=== PATIENT | male | born 1945 | race Caucasian/White ===

== ENCOUNTER 2017-05-29 05:43 | Inpatient (IN) | payer MEDICARE, OTHER ==
[~2017-05-29] VITALS: Ht 167.6 cm; Wt 64.0 kg
[2017-05-29] MEDS ORDERED: SODIUM CHLORIDE FLUSH 10ML SYR IVF ONE (06:00)
[2017-05-29 06:28] LABS: HEMATOCRIT 50.7 % (39.2-51.8); WHITE BLOOD COUNT 5.9 x10^3/uL (3.4-10)
[2017-05-29 06:36] LABS: BLOOD UREA NITROGEN 15 mg/dL (7-18)
[2017-05-29 06:40] LABS: ASPARTATE AMINO TRANSFERASE 11 U/L (15-37)
[2017-05-29 06:41] LABS: IS PT STATUS REG ER OR PRE ER? YES
[2017-05-29] MEDS ORDERED: METO-93 PO (07:07)
[2017-05-29] MEDS ORDERED: LEVO50TA5 PO (07:08)
[2017-05-29] MEDS ORDERED: SODIUM CHLORIDE 0.9% 1,000 ML IV ONE (07:42)
[2017-05-29] MEDS ORDERED: SODIUM CHLORIDE FLUSH 10ML SYR IVF PRN (08:00)
[2017-05-29] MEDS: SODIUM CHLORIDE 0.9% 1,000 ML IV SCH ×2 (08:17→18:12)
[2017-05-29] MEDS ORDERED: LABETALOL 5MG/ML, 20ML IVPush PRN (08:30)
[2017-05-29] MEDS ORDERED: ONDANSETRON 2MG/ML, 2ML IVPush PRN (08:30)
[2017-05-29] MEDS ORDERED: ACETAMINOPHEN 325 MG TABLET PO PRN (08:30)
[2017-05-29] MEDS ORDERED: GADOBUTROL 7.5 MMOL/7.5 ML PFS ONE (09:01)
[2017-05-29 10:26] VITALS: BP 155/90
[2017-05-29 14:14] VITALS: BP 121/69
[2017-05-29 14:15] VITALS: BP 109/75
[2017-05-29 14:16] VITALS: BP 120/74
== END 2017-05-29 19:15 | disposition home or self-care (01) | DRG 54 ==
LOC: ED 06:35 → EDIP 07:42 → 4WST 10:10
PROVIDERS: ADMIT Family Medicine; ATTEND Family Medicine
DX: D33.3 Benign neoplasm of cranial nerves (principal); G93.40 Encephalopathy, unspecified; I48.91 Unspecified atrial fibrillation; G45.0 Vertebro-basilar artery syndrome; G45.9 Transient cerebral ischemic attack, unspecified; W19.XXXA Unspecified fall, initial encounter; E03.9 Hypothyroidism, unspecified; E78.00 Pure hypercholesterolemia, unspecified; H93.19 Tinnitus, unspecified ear; I51.7 Cardiomegaly; K21.9 Gastro-esophageal reflux disease without esophagitis; Y93.89 Activity, other specified; Y92.89 Other specified places as the place of occurrence of the external cause; Y99.8 Other external cause status; Z88.8 Allergy status to other drugs, medicaments and biological substances
CPT/HCPCS: 36415; 70450; 70553; 71010; 80053; 80061; 81001; 84443; 84484; 85025; 85610; 85730; 93005; 93306; 93880; 99285; A9585; J7030

== ENCOUNTER 2017-12-05 09:10 | Emergency (ER) | payer OTHER ==
[~2017-12-05] VITALS: Ht 167.6 cm; Wt 70.0 kg
[~2017-12-05 09:10] MED LIST: LEVO50TA5 PO; METO-93 PO
[2017-12-05 09:48] LABS: MICROSCOPIC NOT IND
[2017-12-05] MEDS ORDERED: SODIUM CHLORIDE 0.9% 1,000 ML IV ONE (09:49)
[2017-12-05 09:58] LABS: CULTURE INDICATED? NO
[2017-12-05] MEDS ORDERED: DIPHENHYDRAMINE 50 MG/ML, 1ML IVPush ONE (10:00)
[2017-12-05] MEDS ORDERED: SODIUM CHLORIDE FLUSH 10ML SYR IVF ONE (10:00)
[2017-12-05] MEDS ORDERED: methylPREDNISolone SOD SUCC 125 MG/2 ML IVPush SCH (10:00)
[2017-12-05] MEDS ORDERED: methylPREDNISolone SOD SUCC 125 MG/2 ML ONE (10:18)
[2017-12-05] MEDS ORDERED: DIPHENHYDRAMINE 50 MG/ML, 1ML ONE (10:18)
[2017-12-05 10:33] LABS: BASOPHILS # (AUTO) 0.02 x10^3/uL (0-0.1); BASOPHILS % (AUTO) 0 % (0-1); EOSINOPHILS # (AUTO) 0.33 x10^3/uL (0-0.4); EOSINOPHILS % (AUTO) 4 % (1-7); LYMPHOCYTES # (AUTO) 1.37 x10^3/uL (1-3.4); LYMPHOCYTES % (AUTO) 17 % (22-44); MD NO; MEAN CORPUSCULAR HEMOGLOBIN 31.4 pg (27.5-34.5); MEAN CORPUSCULAR HGB CONC 33.1 g/dL (33.2-36.2); MEAN CORPUSCULAR VOLUME 94.7 fL (81-97); MONOCYTES # (AUTO) 0.47 x10^3/uL (0.2-0.8); MONOCYTES % (AUTO) 6 % (2-9); NEUTROPHILS # (AUTO) 5.93 x10^3/uL (1.8-6.8); NEUTROPHILS % (AUTO) 73 % (42-75); PLATELET COUNT 192 x10^3/uL (130-400); RED CELL DISTRIBUTION WIDTH 14.5 % (9.4-14.8)
[2017-12-05 10:41] LABS: ALANINE AMINOTRANSFERASE 25 U/L (12-78); ALBUMIN 3.8 g/dL (3.4-5.0); ANION GAP 7 mmol/L (5-15); CALCIUM 8.9 mg/dL (8.5-10.1); CHLORIDE 107 mmol/L (98-107); CREATININE 0.94 mg/dL (0.7-1.3)
[2017-12-05 10:43] LABS: ALKALINE PHOSPHATASE 70 U/L (45-117); BILIRUBIN,TOTAL 0.5 mg/dL (0.2-1.0); TOTAL PROTEIN 7.2 g/dL (6.4-8.2)
[2017-12-05] MEDS ORDERED: OMNIPAQUE 350 MG/ML, 100ML BOTTLE ONE (11:35)
[2017-12-05] MEDS ORDERED: BEE PROPOLIS (11:50)
[2017-12-05] MEDS ORDERED: ENZY1CAP PO (11:51)
[2017-12-05] MEDS ORDERED: UBID100C41 PO (11:51)
[2017-12-05] MEDS ORDERED: [UNRECOGNIZED DRUG - CODE] PO (11:53)
[2017-12-05] MEDS ORDERED: [UNRECOGNIZED DRUG - OTHER] PO (11:53)
[2017-12-05] MEDS ORDERED: MULT-516 PO (11:54)
[2017-12-05] MEDS ORDERED: ARGI500C7 PO (11:54)
[2017-12-05] MEDS ORDERED: LACT1CAP43 PO (11:55)
[2017-12-05] MEDS ORDERED: FRUIT PO (11:56)
[2017-12-05] MEDS ORDERED: [UNRECOGNIZED DRUG - OTHER] PO (11:56)
[2017-12-05] MEDS ORDERED: [UNRECOGNIZED DRUG - OTHER] (11:57)
[2017-12-05] MEDS ORDERED: ACET600C5 PO (11:57)
[2017-12-05] MEDS ORDERED: RESV1TAB2 PO (11:58)
[2017-12-05] MEDS ORDERED: PHYT100T PO (11:59)
[2017-12-05] MEDS ORDERED: CHOL100011 PO (11:59)
[2017-12-05] MEDS ORDERED: VITA80004 PO (11:59)
[2017-12-05] MEDS ORDERED: POLICOSANOL (12:00)
[2017-12-05] MEDS ORDERED: CYAN1TAB29 PO (12:01)
[2017-12-05] MEDS ORDERED: TESTOSTERONE SHOT (12:02)
[2017-12-05] MEDS ORDERED: DIPH25CA61 PO (12:03)
[2017-12-05] MEDS ORDERED: CHLORTRIMETON (12:04)
[2017-12-05] MEDS ORDERED: PSYL0.5215 PO (12:04)
[2017-12-05] MEDS ORDERED: MAGN400O7 PO (12:05)
[2017-12-05 12:46] VITALS: BP 133/81
== END 2017-12-05 12:48 | disposition home or self-care (01) ==
LOC: ED 11:27
DX: R10.32 Left lower quadrant pain (principal); I25.10 Atherosclerotic heart disease of native coronary artery without angina pectoris; K21.9 Gastro-esophageal reflux disease without esophagitis; E78.5 Hyperlipidemia, unspecified; E03.9 Hypothyroidism, unspecified; I10 Essential (primary) hypertension; Z90.49 Acquired absence of other specified parts of digestive tract; Z86.73 Personal history of transient ischemic attack (TIA), and cerebral infarction without residual deficits
CPT/HCPCS: 36415; 74177; 80053; 81003; 85025; 96374; 96375; 99285; J1200; J2930; J7030; Q9967; 96361

== ENCOUNTER → 2018-01-13 | Outpatient (CLI) | payer OTHER ==
[~2018-01-13] MED LIST changes: +ACET600C5 PO; +ARGI500C7 PO; +BEE PROPOLIS; +CHLORTRIMETON; +CHOL100011 PO; +CYAN1TAB29 PO; +DIPH25CA61 PO; +ENZY1CAP PO; +FRUIT PO; +LACT1CAP43 PO; +MAGN400O7 PO; +MULT-516 PO; +PHYT100T PO; +POLICOSANOL; +PSYL0.5215 PO; +RESV1TAB2 PO; +TESTOSTERONE SHOT; +UBID100C41 PO; +VITA80004 PO; +[UNRECOGNIZED DRUG - CODE] PO; +[UNRECOGNIZED DRUG - OTHER]; +[UNRECOGNIZED DRUG - OTHER] PO; +[UNRECOGNIZED DRUG - OTHER] PO
== END | disposition home or self-care (01) ==
LOC: CFH 08:34
PROVIDERS: ATTEND Internal Medicine Cardiovascular Disease
DX: I10 Essential (primary) hypertension (principal); I25.10 Atherosclerotic heart disease of native coronary artery without angina pectoris
CPT/HCPCS: 78452; 93017; A9502

== ENCOUNTER → 2018-01-21 | Outpatient (CLI) | payer OTHER | END | disposition home or self-care (01) | LOC: ROC 01-14 09:54 | PROVIDERS: ATTEND Radiology Radiation Oncology | DX: Z08 Encounter for follow-up examination after completed treatment for malignant neoplasm (principal); D33.3 Benign neoplasm of cranial nerves | CPT/HCPCS: 99214; G0463 ==

== ENCOUNTER → 2018-01-24 | Outpatient (CLI) | payer OTHER ==
[~2018-01-24] MED LIST changes: +GADOBUTROL 7.5 MMOL/7.5 ML VIAL ONE
== END | disposition home or self-care (01) ==
LOC: CFH 11:56
PROVIDERS: ATTEND Radiology Radiation Oncology
DX: G31.9 Degenerative disease of nervous system, unspecified (principal); D33.3 Benign neoplasm of cranial nerves
CPT/HCPCS: 70553; A9585

== ENCOUNTER 2018-08-12 17:58 | Emergency (ER) | payer OTHER ==
[~2018-08-12] VITALS: Ht 170.2 cm; Wt 80.0 kg
[~2018-08-12 17:58] MED LIST changes: -GADOBUTROL 7.5 MMOL/7.5 ML VIAL ONE
--- NOTE | 2018-08-12 18:19 | NUR ---
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 ALERT AND ORIENTED UPON RN AND MD ASSESMENT. DENIES SYNCOPE, REPORTS NAUSEA, 4 ZOFRAN PO GIVEN BY [facility].
[2018-08-12] MEDS ORDERED: PROMETHAZINE 25 MG/ML, 1ML IM ONE (18:30)
[2018-08-12] MEDS ORDERED: PROMETHAZINE 25 MG/ML, 1ML ONE (18:31)
[2018-08-12 18:43] LABS: BASOPHILS # (AUTO) 0.01 x10^3/uL (0-0.1); BASOPHILS % (AUTO) 0 % (0-1); EOSINOPHILS # (AUTO) 0.18 x10^3/uL (0-0.4); EOSINOPHILS % (AUTO) 2 % (1-7); LYMPHOCYTES # (AUTO) 1.31 x10^3/uL (1-3.4); LYMPHOCYTES % (AUTO) 17 % (22-44); MD NO; MEAN CORPUSCULAR HEMOGLOBIN 33.6 pg (27.5-34.5); MEAN CORPUSCULAR HGB CONC 34.6 g/dL (33.2-36.2); MEAN CORPUSCULAR VOLUME 97.2 fL (81-97); MEAN PLATELET VOLUME 6.1 fL (7.4-10.4); MONOCYTES # (AUTO) 0.59 x10^3/uL (0.2-0.8); MONOCYTES % (AUTO) 8 % (2-9); NEUTROPHILS % (AUTO) 74 % (42-75); PLATELET COUNT 219 x10^3/uL (130-400); RED BLOOD COUNT 4.95 x10^6/uL (4.38-5.82); RED CELL DISTRIBUTION WIDTH 14.2 % (9.4-14.8)
[2018-08-12 18:54] LABS: ALANINE AMINOTRANSFERASE 26 U/L (12-78); ALBUMIN 3.7 g/dL (3.4-5.0); ANION GAP 8 mmol/L (5-15); CALCIUM 8.8 mg/dL (8.5-10.1); CHLORIDE 106 mmol/L (98-107); CREATININE 0.84 mg/dL (0.7-1.3)
[2018-08-12 18:58] LABS: ALKALINE PHOSPHATASE 58 U/L (45-117); BILIRUBIN,TOTAL 0.8 mg/dL (0.2-1.0); TOTAL PROTEIN 6.7 g/dL (6.4-8.2); TROPONIN I < 0.015 ng/mL (0.000-0.045)
[2018-08-12 19:10] VITALS: BP 137/78
--- NOTE | 2018-08-12 19:18 | NUR ---
MD AT BEDSIDE FOR RECHECK, PT AND FAMILY AGREE TO POC (DC).
== END 2018-08-12 20:01 | disposition home or self-care (01) ==
LOC: ED 19:30
DX: R11.0 Nausea (principal); R42 Dizziness and giddiness; E86.0 Dehydration; R93.0 Abnormal findings on diagnostic imaging of skull and head, not elsewhere classified; I10 Essential (primary) hypertension; E78.5 Hyperlipidemia, unspecified; E03.9 Hypothyroidism, unspecified; K21.9 Gastro-esophageal reflux disease without esophagitis; Z86.73 Personal history of transient ischemic attack (TIA), and cerebral infarction without residual deficits
CPT/HCPCS: 36415; 70450; 80053; 84484; 85025; 93005; 96372; 99284; J2550

== ENCOUNTER → 2018-08-24 | Outpatient (CLI) | payer OTHER | END | disposition home or self-care (01) | LOC: ROC 09:20 | PROVIDERS: ATTEND Radiology Radiation Oncology | DX: D33.3 Benign neoplasm of cranial nerves (principal) | CPT/HCPCS: 99213; G0463 ==

== ENCOUNTER 2018-11-19 10:07 | Emergency (ER) | payer OTHER ==
[~2018-11-19] VITALS: Ht 167.6 cm; Wt 74.2 kg
--- NOTE | 2018-11-19 10:10 | NUR ---
pt BIB [facility] from home c/o S/O r sided jaw pain and back pain with intermittent dizziness that started when he was having a BM this AM. pt only cardiac hx is a hx of A-Fib with ablation. pt denies CP. states that he had some mild SOB [employer] T[employer]ER but now denies. no other c/o at this time. Dr Odonnell has been to bedside for eval. no family at bedside
[2018-11-19] MEDS ORDERED: SODIUM CHLORIDE FLUSH 10ML SYR IVF ONE (10:30)
[2018-11-19] MEDS ORDERED: NITROGLYCERIN SINGLE TAB 0.4 MG SL PRN (10:30)
--- NOTE | 2018-11-19 10:33 | NUR ---
pt steffany CARDENAS at this time
[2018-11-19 10:47] LABS: BASOPHILS # (AUTO) 0.02 x10^3/uL (0-0.1); BASOPHILS % (AUTO) 0 % (0-1); EOSINOPHILS # (AUTO) 0.14 x10^3/uL (0-0.4); EOSINOPHILS % (AUTO) 3 % (1-7); LYMPHOCYTES # (AUTO) 1.41 x10^3/uL (1-3.4); LYMPHOCYTES % (AUTO) 32 % (22-44); MD NO; MEAN CORPUSCULAR HGB CONC 33.5 g/dL (33.2-36.2); MEAN CORPUSCULAR VOLUME 95.6 fL (81-97); MEAN PLATELET VOLUME 6.7 fL (7.4-10.4); MONOCYTES # (AUTO) 0.48 x10^3/uL (0.2-0.8); MONOCYTES % (AUTO) 11 % (2-9); NEUTROPHILS # (AUTO) 2.43 x10^3/uL (1.8-6.8); NEUTROPHILS % (AUTO) 54 % (42-75); PLATELET COUNT 195 x10^3/uL (130-400); RED BLOOD COUNT 5.46 x10^6/uL (4.38-5.82); RED CELL DISTRIBUTION WIDTH 13.6 % (9.4-14.8)
[2018-11-19 10:58] LABS: ALANINE AMINOTRANSFERASE 28 U/L (12-78); ALBUMIN 3.9 g/dL (3.4-5.0); ANION GAP 5 mmol/L (5-15); CALCIUM 9.5 mg/dL (8.5-10.1); CHLORIDE 110 mmol/L (98-107); CREATININE 0.97 mg/dL (0.7-1.3)
[2018-11-19 11:03] LABS: ALKALINE PHOSPHATASE 69 U/L (45-117); BILIRUBIN,TOTAL 0.4 mg/dL (0.2-1.0); T4 (THYROXINE) 9.2 mcg/dL (4.5-12.1); TOTAL PROTEIN 7.3 g/dL (6.4-8.2); TROPONIN I < 0.015 ng/mL (0.000-0.045)
--- NOTE | 2018-11-19 11:08 | NUR ---
no new c/o. pt resting in spotiion of comfort with at bedside. awaiting test results. updated on POC. report to Morenita TOLEDO
--- NOTE | 2018-11-19 11:12 | NUR ---
BEDSIDE REPORT FROM SHEILA TOLEDO, PT RESTING IN [facility] WITH AT BEDSIDE. NAD, NO C/O PAIN AT THIS TIME
[2018-11-19 11:54] VITALS: BP 143/90
== END 2018-11-19 12:05 | disposition home or self-care (01) ==
LOC: ED 11:04
DX: R53.1 Weakness (principal); K21.9 Gastro-esophageal reflux disease without esophagitis; I10 Essential (primary) hypertension; E03.9 Hypothyroidism, unspecified; Z86.73 Personal history of transient ischemic attack (TIA), and cerebral infarction without residual deficits
CPT/HCPCS: 36415; 71045; 80053; 83735; 84436; 84443; 84484; 85025; 93005; 99284

== ENCOUNTER 2019-08-21 09:22 | Outpatient (CLI) | payer OTHER | END 2019-08-21 23:59 | disposition home or self-care (01) | LOC: ROC 09:22 | PROVIDERS: ATTEND Radiology Radiation Oncology | DX: D33.3 Benign neoplasm of cranial nerves (principal) | CPT/HCPCS: 99213; G0463 ==

== ENCOUNTER 2020-12-25 13:33 | Outpatient (CLI) | payer OTHER | END 2020-12-25 23:59 | disposition home or self-care (01) | LOC: CFH 13:33 | PROVIDERS: ATTEND Radiology Radiation Oncology | DX: Z02.9 Encounter for administrative examinations, unspecified (principal) ==

== ENCOUNTER → 2021-02-17 | Outpatient (CLI) | payer OTHER | END | disposition home or self-care (01) | LOC: ROC 07:50 | PROVIDERS: ATTEND Radiology Radiation Oncology | DX: Z08 Encounter for follow-up examination after completed treatment for malignant neoplasm (principal); D33.3 Benign neoplasm of cranial nerves | CPT/HCPCS: 99213; G0463 ==

== ENCOUNTER → 2021-03-20 | Outpatient (CLI) | payer OTHER ==
[~2021-03-20] MED LIST changes: +REGADENOSON 0.4 MG/5 ML SYRINGE ONE
== END | disposition home or self-care (01) ==
LOC: CFH 07:25
PROVIDERS: ATTEND Nurse Practitioner Family
DX: I08.8 Other rheumatic multiple valve diseases (principal); I10 Essential (primary) hypertension; I25.10 Atherosclerotic heart disease of native coronary artery without angina pectoris; I48.0 Paroxysmal atrial fibrillation
CPT/HCPCS: 78452; 93017; 93306; 93356; A9502; J2785